=== PATIENT | female | born 1940 | race Caucasian/White ===

== ENCOUNTER 2018-11-18 08:10 | Outpatient (CLI) | payer MEDICARE ==
[~2018-11-18] VITALS: Ht 167.6 cm; Wt 91.2 kg
[2018-11-18 08:49] VITALS: BP 124/53
[2018-11-18] MEDS ORDERED: ALBU0.63 IH (12:09)
[2018-11-18] MEDS ORDERED: DILT240C53 PO (12:09)
[2018-11-18] MEDS ORDERED: RT-ALBUINH IH (12:09)
[2018-11-18] MEDS ORDERED: MIRA25TA PO (12:09)
[2018-11-18] MEDS ORDERED: VENL150C PO (12:09)
[2018-11-18] MEDS ORDERED: SPIR25TA PO (12:09)
[2018-11-18] MEDS ORDERED: NFMET1000 PO (12:09)
[2018-11-18] MEDS ORDERED: BUME0.5T3 PO (12:09)
[2018-11-18] MEDS ORDERED: CHOL200025 PO (12:09)
[2018-11-18] MEDS ORDERED: DABI75CA3 PO (12:09)
[2018-11-18] MEDS ORDERED: LINA5TAB PO (12:09)
[2018-11-18] MEDS ORDERED: DABI150C5 PO (13:05)
[2018-11-18] MEDS ORDERED: BUME2TAB3 PO (13:05)
== END 2018-11-18 12:17 | disposition home or self-care (01) ==
LOC: PREOP 08:10
PROVIDERS: ATTEND Podiatrist Foot & Ankle Surgery
DX: Z01.818 Encounter for other preprocedural examination (principal)
CPT/HCPCS: 87081

== ENCOUNTER 2018-11-22 11:43 | Day surgery (SDC) | payer MEDICARE, OTHER ==
[2018-11-22] VITALS (8 sets, daily range): BP systolic 111–127; BP diastolic 43–72
[~2018-11-22] VITALS: Ht 167.6 cm; Wt 91.2 kg
[~2018-11-22 11:43] MED LIST: ALBU0.63 IH; BUME0.5T3 PO; BUME2TAB3 PO; CHOL200025 PO; DABI150C5 PO; DABI75CA3 PO; DILT240C53 PO; LINA5TAB PO; MIRA25TA PO; NFMET1000 PO; RT-ALBUINH IH; SPIR25TA PO; VENL150C PO
[2018-11-22] MEDS ORDERED: LACTATED RINGERS 1,000 ML IV PRN (12:18)
[2018-11-22] MEDS ORDERED: ceFAZolin INJECTION 1,000 MG in WATER (STERILE) FOR INJECTION 10 ML IV ONE (12:30)
[2018-11-22] MEDS ORDERED: CATHETER FLUSH 10 ML SYR IV PRN (12:30)
[2018-11-22] MEDS ORDERED: PROPOFOL INJECTION 50 ML IV ONE (12:35)
[2018-11-22] MEDS ORDERED: BUPIVACAINE 0.5% 30 ML (SENSORCAINE) VIAL ONE (13:10)
[2018-11-22] MEDS ORDERED: LIDOCAINE 1% INJ 20 ML 20 ML VIAL ONE (13:10)
--- NOTE | 2018-11-22 13:13 | Progress Note-Pre Operative ---
Pre-Operative Progress Note H&P Reviewed The H&P was reviewed, patient examined and no changes noted. Date Seen by Provider: Nov 22, 2018 Time Seen by Provider: 13:13 Date H&P Reviewed: Nov 22, 2018 Time H&P Reviewed: 13:13 Pre-Operative Diagnosis: Osteomyelitis right 3rd toe MARIA ESTHER FELICIANO DPM Nov 22, 2018 13:13
--- NOTE | 2018-11-22 14:08 | Anesthesia-General Post-Op ---
MAC Patient Condition Mental Status/LOC: Same as Preop Cardiovascular: Satisfactory Nausea/Vomiting: Absent Respiratory: Satisfactory Pain: Controlled Complications: Absent Post Op Complications Complications None Follow Up Care/Instructions Patient Instructions None needed. Anesthesiology Discharge Order Discharge Order Patient is doing well, no complaints, stable vital signs, no apparent adverse anesthesia problems. No complications reported per nursing. SAIDA ALEJANDRE CRNA Nov 22, 2018 14:08
[2018-11-22] MEDS ORDERED: HYDROcodone/APAP 5 MG/325 MG (LORTAB) TAB PO PRN (14:15)
[2018-11-22] MEDS ORDERED: LACTATED RINGERS 1,000 ML IV SCH (14:15)
--- NOTE | 2018-11-22 14:15 | Progress Note-Post Operative ---
Post-Operative Progess Note Surgeon (s)/Athletic Coach (s) Surgeon MARIA ESTHER FELICIANO DPM Athletic Coach: None Pre-Operative Diagnosis Osteomyelitis right 3rd toe Post-Operative Diagnosis Same Procedure & Operative Findings Date of Procedure 11/22/18 Procedure Performed/Findings Amputation of the right 3rd toe Anesthesia Type MAC Estimated Blood Loss Estimated blood loss (mL): Minimal Specimens/Packing Specimens Removed Right 3rd toe Packing: none MARIA ESTHER FELICIANO DPM Nov 22, 2018 14:15
[2018-11-22] MEDS ORDERED: CEPH500C PO (14:18)
[2018-11-22] MEDS ORDERED: ACHD5005 PO (14:18)
--- NOTE | 2018-11-22 19:01 | Diagnostic Imaging Report ---
EXAMINATION: Right foot at 2:32 p.m. INDICATION: Postop. TECHNIQUE: AP and lateral views were obtained. COMPARISON: There are no prior studies available for comparison. FINDINGS: There has been an amputation of the head of the proximal phalanx, the middle phalanx, and the distal phalanx of the third digit. There is irregularity of the soft tissues about the remaining portion of the proximal phalanx of the third digit but there is no sign of a radiopaque foreign body in this area. There is no fracture or acute bony abnormality noted. 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 There is also small calcaneal spur. The soft tissues are unremarkable. IMPRESSION: There are postoperative changes consistent with amputation of the head of the proximal phalanx, the middle and distal phalanges of the third digit. There is no acute abnormality identified, otherwise. Dictated by: Dictated on workstation # [id number]
--- NOTE | 2018-11-22 23:47 | OPERATIVE REPORT ---
DATE OF SERVICE: 11/22/2018 SURGEON: Viji Feliciano DPM. PREOPERATIVE DIAGNOSIS: Osteomyelitis, right third toe. POSTOPERATIVE DIAGNOSIS: Osteomyelitis, right third toe. PROCEDURE: Amputation of right third toe. WOUND CLASS: Contaminated. ANESTHESIA: Monitored anesthesia care. HEMOSTASIS: Pneumatic ankle tourniquet at 250 mmHg. INDICATIONS: This 78-year-old female presents with a chronic wound to the distal aspect of the right third toe. X-ray findings indicate that there has been osteolysis and bony changes to the distal phalanx, right third toe. Conservative and surgical options were discussed at length with the patient and she is willing to proceed with surgical options at this time after risks and complications were discussed at length. No guarantees were extended to the patient and she is willing to proceed. DESCRIPTION OF PROCEDURE: The patient was brought back to the operating table, placed in secure supine position. Anesthesia was achieved utilizing 10 mL of 1:1 mixture of 1% Xylocaine, 0.5% Marcaine injected in local infusion to the third ray, right foot. Pneumatic ankle tourniquet was placed on the right lower extremity over several layers of padding. Right foot was then prepped and draped in normal sterile manner. The right foot was then elevated, allowed to exsanguinate after which the tourniquet was inflated to 250 mmHg. Attention was then directed to the right third toe where an incision was created from the dorsal aspect of the base of the middle phalanx medial and laterally and extending slightly proximally at the medial and lateral aspect of the proximal interphalangeal joint area. The incision was then extended from the mostly medial and lateral aspect of the digit distally, creating a plantar flap that extended to the distal interphalangeal joint area. The incision was deepened down to bone and the digit was disarticulated at the proximal interphalangeal joint. The middle phalanx was found to be without pathology at this time. This specimen was sent to the back table and a small portion of the distal phalanx was taken to have cultures and sensitivities derived from it. Attention was then directed to the proximal phalanx of the right third toe where the head of the proximal phalanx was removed to facilitate closure. The wound was then flushed with copious amounts of normal saline. No other pathology was identified to the remainder of the right third toe. The extensor and flexor tendons were removed just proximally as possible. The tourniquet was released noting no active bleeders. The plantar flap did have perfusion noted. The wound was flushed once again after which a swab culture was taken. The wound was then closed and coapted plantar to dorsal flap without skin tension noted. A 4-0 Prolene was utilized for closure in a simple interrupted type stitch. Postoperative injection consisted of 4 mL of 1:1 mixture of 1% Xylocaine, 0.5% Marcaine in local infusion to the surgical site. Postoperative dressing consisted of Betadine soaked Adaptic, sterile 4 x 4, sterile Kerlix all secured with a Coban wrap. The patient tolerated the anesthesia and procedure well and was transported from the operating room to the recovery area with vital signs stable and vascular status intact to all remaining digits of the right foot. The patient is to follow up in my office in approximately 1 week period of time or sooner if necessary. She is to have minimal weightbearing on the right lower extremity with a surgical splint shoe and crutches or walker. Job ID: [id number] DocumentID: [id number] Dictated Date: 11/22/2018 14:25:02 Mechanical Shop Laborer Date: 11/22/2018 23:45:55 Dictated By: VIJI FELICIANO DPM
== END 2018-11-22 15:45 | disposition home or self-care (01) ==
LOC: SDC 11:43
PROVIDERS: ATTEND Podiatrist Foot & Ankle Surgery
DX: E11.69 Type 2 diabetes mellitus with other specified complication (principal); M86.9 Osteomyelitis, unspecified; I25.10 Atherosclerotic heart disease of native coronary artery without angina pectoris; E78.5 Hyperlipidemia, unspecified; I10 Essential (primary) hypertension; I48.91 Unspecified atrial fibrillation; G47.33 Obstructive sleep apnea (adult) (pediatric); E11.40 Type 2 diabetes mellitus with diabetic neuropathy, unspecified; J44.9 Chronic obstructive pulmonary disease, unspecified; F32.9 Major depressive disorder, single episode, unspecified; M19.91 Primary osteoarthritis, unspecified site; Z87.891 Personal history of nicotine dependence; Z79.899 Other long term (current) drug therapy; Z79.82 Long term (current) use of aspirin; Z79.84 Long term (current) use of oral hypoglycemic drugs; Z95.1 Presence of aortocoronary bypass graft; Z95.0 Presence of cardiac pacemaker; Z99.81 Dependence on supplemental oxygen; Z88.2 Allergy status to sulfonamides; Z91.040 Latex allergy status
CPT/HCPCS: 73620; 82962; 87070; 87075; 87101; 87205

== ENCOUNTER → 2023-01-01 | Outpatient (CLI) | payer MEDICARE ==
[~2023-01-01] VITALS: Ht 167 cm; Wt 85.0 kg
[~2023-01-01] MED LIST changes: +ACHD5005 PO; +ALBU8.5H6 IH; -BUME0.5T3 PO; +BUME0.5T5 PO; -BUME2TAB3 PO; +BUME2TAB7 PO; +CEPH500C PO; +REGADENOSON 0.4 MG/5 ML SYR IV ONE; -RT-ALBUINH IH; -VENL150C PO; +VENL150C3 PO
[2023-01-01] MEDS: CATHETER FLUSH 10 ML SYR IVP PRN ×2 (07:22→09:14)
[2023-01-01 09:15] VITALS: BP 127/55
--- NOTE | 2023-01-01 11:48 | Cardiology Stress Test Report ---
Stress Test Report Date of Procedure/Referring: Date of Procedure: Jan 01, 2023 PCP Javier Rogers MD Admitting Physician Admitting Physician: Attending Physician: Evens Lopez MD Indications: CP Baseline Heart Rate: 61 Baseline Blood Pressure: Blood Pressure Systolic: 127 Blood Pressure Diastolic: 55 Baseline Vitals Vital Signs Date Time Temp Pulse Resp B/P (MAP) Pulse Ox O2 Delivery O2 Flow Rate FiO2 01/01/23 09:15 55 127/55 (79) 99 Nasal Cannula 4.00 Baseline EKG: Baseline EKG: LBBB Summary After explaining the procedure to the patient, she signed a consent and then brought to the stress nuclear laboratory. Patient received 0.4 mg Lexiscan for stress test, ECG, heart rate and blood pressure were monitored continuously. Resting and stress dose of radio tracer were injected, imaging was acquired and reviewed in short axis, horizontal long axis and vertical long axis views. TID: 1.15 SSS: 3 SDS: 3 EF: 50 Patient tolerated Lexiscan well Baseline left bundle branch block persisted during test Diaphragmatic attenuation with mild ischemia at the inferior wall most probably secondary to diaphragmatic attenuation, overall there is no significant ischemia or infarction on SPECT images Normal left ventricular size, ejection fraction 50% CC EVENS Lucas MD Jan 01, 2023 11:48
== END ==
LOC: CARD 07:02
PROVIDERS: ATTEND Internal Medicine Cardiovascular Disease
DX: I25.10 Atherosclerotic heart disease of native coronary artery without angina pectoris (principal); I10 Essential (primary) hypertension
CPT/HCPCS: 78452; 93017; A9502